=== PATIENT | female | born 1940 | race Caucasian/White ===

== ENCOUNTER → 2020-10-01 | Day surgery (SDC) | payer MEDICARE, OTHER ==
[~2020-10-01] MED LIST: AMIODARONE HCL100 MG PO; ARICEPT 10MG TA10 MG PO; LANOXIN 0.120.125 MG PO; MEMANTINE HCL10 MG PO; PRADAXA150 MG PO; SYMBICORT 80-10.2 GM INH; TOPROL XL 50 MG50 MG PO
[2020-10-01 12:46] LABS: HCT 40.6 % (37.0-47.0); HGB 13.7 g/dl (12.5-16.0); MCH 35.2 pg (25.0-31.0); MCHC 33.7 g/dL (32.0-36.0); MCV 104.4 fL (78.0-100.0); RBC 3.89 M/uL (4.20-5.40); RDW 13.4 % (11.5-14.0); WBC 4.9 K/uL (4.0-10.5)
[2020-10-01 13:00] LABS: ALBUMIN 3.1 g/dL (3.4-5.0); BILIRUBIN - TOTAL 0.5 mg/dL (0.2-1.0); BUN/CREAT RATIO (CALC) 29.6 RATIO; CREATININE 0.81 mg/dL (0.51-0.95); GLOBULIN (CALCULATION) 3.1 g/dL; POTASSIUM 3.9 mmol/L (3.5-5.1); TOTAL PROTEIN 6.2 g/dL (6.4-8.2)
== END | disposition home or self-care (01) ==
LOC: FAS 11:44
PROVIDERS: Surgery
DX: K64.8 Other hemorrhoids (principal); K57.30 Diverticulosis of large intestine without perforation or abscess without bleeding; F02.80 Dementia in other diseases classified elsewhere, unspecified severity, without behavioral disturbance, psychotic disturbance, mood disturbance, and anxiety; M19.90 Unspecified osteoarthritis, unspecified site; E04.9 Nontoxic goiter, unspecified; Z20.822 Contact with and (suspected) exposure to COVID-19; Z88.0 Allergy status to penicillin; Z79.899 Other long term (current) drug therapy; Z85.3 Personal history of malignant neoplasm of breast; Z86.79 Personal history of other diseases of the circulatory system; Z90.12 Acquired absence of left breast and nipple; Z82.49 Family history of ischemic heart disease and other diseases of the circulatory system; Z83.3 Family history of diabetes mellitus; Z87.891 Personal history of nicotine dependence
CPT/HCPCS: 36415; 80053; J7120; U0002